=== PATIENT | male | born 1945 | race Caucasian/White ===

== ENCOUNTER → 2021-08-05 | Outpatient (CLI) | payer MEDICARE ==
--- NOTE | 2021-08-05 20:29 | CT ---
EXAMINATION TYPE: CT abdomen pelvis w con DATE OF EXAM: 08/05/2021 COMPARISON: None. HISTORY: Hx embolism/thrombus iliac groin area. CT DLP: 1015.20 mGycm, Automated Exposure Control for Dose Reduction was Utilized. CONTRAST: CT scan of the abdomen and pelvis is performed with oral and with IV Contrast, patient injected with 100 mL of Isovue 300. FINDINGS: LUNG BASES: No significant abnormality is appreciated. LIVER/GB: No significant abnormality is appreciated. PANCREAS: No significant abnormality is seen. SPLEEN: Small splenule inferior splenic hilum on image 58. ADRENALS: No significant abnormality is seen. KIDNEYS: Symmetric corticomedullary uptake and excretion without hydronephrosis seen bilaterally.. Th ere are simple appearing 2.5 cm thin-walled cyst in the right kidney upper midpole level axial image 32 series 6. BOWEL: Normal-appearing appendix from base of cecum. Oral contrast reaches level of the terminal ileu m. No suspicious small or large bowel dilatation. Diverticula scattered throughout the colon with pro minent diverticulosis in the sigmoid colon. There is moderate wall thickening and mild prominence of the adjacent vasa recta. Cannot entirely exclude noncomplicated mild acute diverticulitis. Correlate clinically. Slightly redundant sigmoid colon is present. PROSTATE/SEMINAL VESICLES: Mildly enlarged prostate consistent with BPH. LYMPH NODES: No greater than 1cm abdominal or pelvic lymph nodes are appreciated. OSSEOUS STRUCTURES: Moderate to severe anterior disc space narrowing with endplate sclerosis and spur ring anterior L1-L2 level. OTHER: Small fat-containing left inguinal hernia. Moderate calcified plaque of the abdominal aorta ex tends into branch vessels. 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 Patent iliac arterial vessels without significant stenosis extending into femoral vessels. IMPRESSION: 1. Patent arterial vessels without significant stenosis. Exam was not protocoled or tailored to asses s the venous structures in the abdomen and pelvis. 2. Scattered colonic diverticula including Prominent sigmoid colonic diverticulosis, cannot exclude m ild uncomplicated diverticulitis in the appropriate clinical setting. Correlate clinically.
== END | disposition home or self-care (01) ==
LOC: RADCTMAIN 14:40
PROVIDERS: ATTEND Internal Medicine Hematology & Oncology
DX: K57.30 Diverticulosis of large intestine without perforation or abscess without bleeding (principal)
CPT/HCPCS: 82565; 84520; 74177; 36415; Q9967

== ENCOUNTER 2022-12-21 06:12 | Inpatient (IN) | payer MEDICARE ==
[2022-12-21 06:17] VITALS: TEMP 97.8
[2022-12-21] MEDS ORDERED: NITROGLYCERIN SL TABS 0.4 MG TAB SUBLINGUAL STA (06:28)
--- NOTE | 2022-12-21 06:33 | ED ---
General Adult HPI <Braden Reyes - Last Filed: 12/21/22 07:38> - General Source: patient, RN notes reviewed, old records reviewed Mode of arrival: wheelchair Limitations: no limitations <Daryl Salgado - Last Filed: 12/22/22 09:45> - General Chief complaint: Chest Pain Stated complaint: Chest Pain Time Seen by Provider: 12/21/22 06:21 - History of Present Illness Initial comments: Patient is a 77-year-old male who presents emergency Department complaining of chest pain. Patient states he does have a history of previously unprovoked blood clots in his left upper extremity and left lower extremity. No longer on blood thinners. Patient also has a history of hypertension. Describes the pain as a pressure sensation with some radiation up towards his neck bilaterally. States it started suddenly when he awoke at 4 AM. Has been relatively constant since and decided to come to the emergency department for further evaluation. Denies any history of cardiac disease. Does have a history of hypertension. Denies any diaphoresis, nausea, vomiting. Denies any abdominal pain or shortness of breath. Did feel little bit lightheaded earlier when he initially awoke. Denies any weakness or numbness. He took 6 baby aspirin at home prior to arrival. Presents for further evaluation at this time. Does not follow up with a hedis abstractor. (Daryl Salgado) - Related Data Home Medications Medication Instructions Recorded Confirmed Atorvastatin [Lipitor] 10 mg PO HS 12/21/22 12/21/22 Losartan Potassium 100 mg PO HS 12/21/22 12/21/22 Multivitamins, Thera [Multivitamin 1 tab PO DAILY 12/21/22 12/21/22 (formulary)] Allergies Allergy/AdvReac Type Severity Reaction Status Date / Time No Known Allergies Allergy Verified 12/21/22 07:22 Review of Systems ROS Other: All systems not noted in ROS Statement are negative. <Braden Reyes - Last Filed: 12/21/22 07:38> ROS Other: All systems not noted in ROS Statement are negative. <Daryl Salgado - Last Filed: 12/22/22 09:45> ROS Statement: Those systems with pertinent positive or pertinent negative responses have been documented in the HPI. Review of Systems: CONST: Denies fever EYES: Denies blurry vision ENT: Denies nasal congestion C/V: Endorses chest pain RESP: Denies shortness of breath GI: Denies abdominal pain : Denies dysuria SKIN: Denies rash. MSK: Denies joint pain. NEURO: Denies headache (Daryl Salgado) Past Medical History Past Medical History: Hypertension, Prostate Disorder History of Any Multi-Drug Resistant Organisms: None Reported Past Surgical History: Breast Surgery, Hernia Repair Additional Past Surgical History / Comment(s): CYST REMOVED FROM LT BREAST- BENIGN. COLONOSCOPY. CATARACT REMOVED LT EYE Past Anesthesia/Blood Transfusion Reactions: No Reported Reaction Past Psychological History: No Psychological Hx Reported Smoking Status: Never smoker Past Alcohol Use History: Occasional Past Drug Use History: None Reported <Daryl Salgado - Last Filed: 12/22/22 09:45> General Exam Limitations: no limitations <Daryl Salgado - Last Filed: 12/22/22 09:45> - General Exam Comments Initial Comments: General: Appears in no acute distress. HEAD: Normal with no signs of head trauma. EYES: PERRLA, EOMI, conjunctiva normal, no discharge. ENT: Hearing grossly intact, normal oropharynx. RESPIRATORY: Clear breath sounds bilaterally. No wheezes, rales, or rhonchi. C/V: Regular rate and rhythm. S1 and S2 auscultated, no edema, peripheral pulses 2+ and intact throughout ABD: Abd is soft, nontender, nondistended EXT: Normal range of motion, no obvious deformity SKIN: No rashes or lesions observed on exposed skin. NEURO: Alert and oriented 4. No focal deficits. (Daryl Salgado) Course Vital Signs 12/21/22 12/21/22 06:14 07:18 Temperature 97.8 F Pulse Rate 58 L 60 Respiratory 16 18 Rate Blood Pressure 189/94 148/90 O2 Sat by Pulse 99 96 Oximetry Medical Decision Making - Lab Data Result diagrams: 12/21/22 06:31 12/21/22 06:31 <Braden Reyes - Last Filed: 12/21/22 07:38> - Lab Data Result diagrams: 12/21/22 12:00 12/21/22 12:00 - EKG Data -: EKG Interpreted by Me <Daryl Salgado - Last Filed: 12/22/22 09:45> - Medical Decision Making Patient care sign out to me by previous shift physician, Dr. Salgado and. Briefly, patient is 77-year-old male presents to the emergency department for symptoms concerning of acute coronary syndrome. Describes the pain as tightness across his chest and into his right shoulder. No associated diaphoresis or nausea. Patient has no history of cardiac disease. His history of hypercholesterolemia and hypertension. Patient denies radiation to his back. Evaluated at bedside at 7:10 AM. He is well-appearing. Physical examination is otherwise benign. EKG was reviewed showing obvious depressions in lateral precordial leads, high lateral leads. Repeat EKG was performed with dynamic changes. Clinical presentation concerning with acute coronary syndrome. Code STEMI was activated. Patient started on heparin. Patient had episode of V. fib arrest that lasted for several seconds. He was defibrillated with return of sinus rhythm and return of spontaneous circulation. Discussed that was discussed with hedis abstractor. Dr. Melendez requested that patie nt be brought to the laboratory chief immediately. Diagnosis/symptom? @ -STEMI Acute, or Chronic, or Acute on Chronic? @ -Acute Uncomplicated (without systemic symptoms) or Complicated (systemic symptoms)? @ -Complicated by episode of V. fib Critical care time 33 minutes (Braden Reyes) Was pt. sent in by a medical professional or institution (, PA, AUXILIARY POWERPLANT OPERATOR, urgent care, hospital, or care home...) When possible be specific @ -No Did you speak to anyone other than the patient for history (EMS, parent, family, police, friend...)? What history was obtained from this source @ -No Did you review nursing and triage notes (agree or disagree)? Why? @ -I reviewed and agree with nursing and triage notes Were old charts reviewed (outside hosp., previous admission, EMS record, old EKG, old radiological studies, urgent care reports/EKG's, care home records)? Report findings @ -No old charts were reviewed Differential Diagnosis (chest pain, altered mental status, abdominal pain women, abdominal pain men, vaginal bleeding, weakness, fever, dyspnea, syncope, headache, dizziness, GI bleed, back pain, seizure, CVA, palpatations, mental health, musculoskeletal)? @ -Differential Chest Pain: Stable Angina, Unstable Angina, STEMI, NSTEMI Aortic Dissection, Pneumothorax, Musculoskeletal, Esophageal Spasm GERD, Cholecystitis, Pancreatitis, Zoster, this is not meant to be an all-inclusive list. EKG interpreted by me (3pts min.). @ -As above X-rays interpreted by me (1pt min.). @ -Pending CT interpreted by me (1pt min.). @ -None done U/S interpreted by me (1pt. min.). @ -None done What testing was considered but not performed or refused? (CT, X-rays, U/S, labs)? Why? @ -None What meds were considered but not given or refused? Why? @ -None Did you discuss the management of the patient with other professionals (professionals i.e. , PA, AUXILIARY POWERPLANT OPERATOR, lab, RT, psych nurse, hospital social worker, fire fighter airport, teacher, president and chief executive officer, case filler)? Give summary @ -No Was smoking cessation discussed for >3mins.? @ -No Was critical care preformed (if so, how long)? @ -No Were there social determinants of health that impacted care today? How? (Homelessness, low income, unemployed, alcoholism, drug addiction, transportation, low edu. Level, literacy, decrease access to med. care, fci, rehab)? @ -No Was there de-escalation of care discussed even if they declined (Discuss DNR or withdrawal of care, Hospice)? DNR status @ -No What co-morbidities impacted this encounter? (DM, HTN, Smoking, COPD, CAD, Cancer, CVA, ARF, Chemo, Hep., AIDS, mental health diagnosis, sleep apnea, morbid obesity)? @ -Hypertension Was patient admitted / discharged? Hospital course, mention meds given and route, prescriptions, significant lab abnormalities, going to OR and other pertinent info. @ -Based on the patient's presentation and physical exam, presents with chest pressure sensation. Somewhat typical chest pain. Concern for acute cardiopulmonary process. We will obtain cardiac workup. He already took 6 baby aspirin at home. He will be administered nitroglycerin tablets at this time. He was in agreement this plan. Vital signs are remarkable for mild hypertension. He'll be connected to continuous cardiac monitoring. EKG shows nonspecific ST segment and T-wave changes with no prior EKG for comparison, with minimal elevation in III that is isolated. Plan to repeat EKG. Remainder the patient's workup is still pending at this time. Patient will be signed out to Dr. Reyes who is assuming care of the patient. (Daryl Salgado) - Lab Data Lab Results 12/21/22 12/21/22 12/21/22 Range/Units 06:31 06:31 06:31 WBC 8.5 (3.8-10.6) k/uL RBC 4.80 (4.30-5.90) m/uL Hgb 14.0 (13.0-17.5) gm/dL Hct 42.1 (39.0-53.0) % MCV 87.5 (80.0-100.0) fL MCH 29.2 (25.0-35.0) pg MCHC 33.4 (31.0-37.0) g/dL RDW 14.6 (11.5-15.5) % Plt Count 182 (150-450) k/uL MPV 8.3 Neutrophils % 64 % Lymphocytes % 25 % Monocytes % 6 % Eosinophils % 4 % Basophils % 0 % Neutrophils # 5.4 (1.3-7.7) k/uL Lymphocytes # 2.2 (1.0-4.8) k/uL Monocytes # 0.5 (0-1.0) k/uL Eosinophils # 0.3 (0-0.7) k/uL Basophils # 0.0 (0-0.2) k/uL PT 10.3 (9.0-12.0) sec INR 1.0 (<1.2) APTT 22.0 (22.0-30.0) sec D-Dimer 0.57 (<0.60) mg/L FEU Sodium 140 (137-145) mmol/L Potassium 4.0 (3.5-5.1) mmol/L Chloride 107 (98-107) mmol/L Carbon Dioxide 25 (22-30) mmol/L Anion Gap 8 mmol/L BUN 16 (9-20) mg/dL Creatinine 0.86 (0.66-1.25) mg/dL Est GFR (CKD-EPI)AfAm >90 (>60 ml/min/1.73 sqM) Est GFR (CKD-EPI)NonAf 84 (>60 ml/min/1.73 sqM) Glucose 115 H (74-99) mg/dL Calcium 9.2 (8.4-10.2) mg/dL Magnesium 2.0 (1.6-2.3) mg/dL Total Bilirubin 0.6 (0.2-1.3) mg/dL AST 31 (17-59) U/L ALT 22 (4-49) U/L Alkaline Phosphatase 74 (38-126) U/L Troponin I (0.000-0.034) ng/mL Total Protein 7.1 (6.3-8.2) g/dL Albumin 3.9 (3.5-5.0) g/dL 12/21/22 Range/Units 06:31 WBC (3.8-10.6) k/uL RBC (4.30-5.90) m/uL Hgb (13.0-17.5) gm/dL Hct (39.0-53.0) % MCV (80.0-100.0) fL MCH (25.0-35.0) pg MCHC (31.0-37.0) g/dL RDW (11.5-15.5) % Plt Count (150-450) k/uL MPV Neutrophils % % Lymphocytes % % Monocytes % % Eosinophils % % Basophils % % Neutrophils # (1.3-7.7) k/uL Lymphocytes # (1.0-4.8) k/uL Monocytes # (0-1.0) k/uL Eosinophils # (0-0.7) k/uL Basophils # (0-0.2) k/uL PT (9.0-12.0) sec INR (<1.2) APTT (22.0-30.0) sec D-Dimer (<0.60) mg/L FEU Sodium (137-145) mmol/L Potassium (3.5-5.1) mmol/L Chloride (98-107) mmol/L Carbon Dioxide (22-30) mmol/L Anion Gap mmol/L BUN (9-20) mg/dL Creatinine (0.66-1.25) mg/dL Est GFR (CKD-EPI)AfAm (>60 ml/min/1.73 sqM) Est GFR (CKD-EPI)NonAf (>60 ml/min/1.73 sqM) Glucose (74-99) mg/dL Calcium (8.4-10.2) mg/dL Magnesium (1.6-2.3) mg/dL Total Bilirubin (0.2-1.3) mg/dL AST (17-59) U/L ALT (4-49) U/L Alkaline Phosphatase (38-126) U/L Troponin I 0.037 H* (0.000-0.034) ng/mL Total Protein (6.3-8.2) g/dL Albumin (3.5-5.0) g/dL - EKG Data EKG Comments: 12-lead Electrocardiogram Interpretation Note EKG was reviewed and interpreted by myself. 12-lead ECG performed at 0625 is interpreted by me as revealing sinus bradycardia at a rate of 53 beats per iban te. [place] is normal.. VA interval is 143 ms, QRS durations 106 ms, QTc is 414 ms.. There are nonspecific ST and T-wave changes present with possible isolated minimal elevation in III and nonspecific ST depressions. R wave progression across the precordium was satisfactory. No prior EKG for comparison.. (Daryl Salgado) Disposition Decision Time: 07:40 <Braden Reyes - Last Filed: 12/21/22 07:38> <Daryl Salgado - Last Filed: 12/22/22 09:45> Clinical Impression: STEMI (ST elevation myocardial infarction) Disposition: ADMITTED IP TO THIS HOSP
[2022-12-21 06:38] LABS: Basophils % (A) 0 %; Eosinophils # (A) 0.3 k/uL (0-0.7); Eosinophils % (A) 4 %; HCT 42.1 % (39.0-53.0); Lymphocytes # (A) 2.2 k/uL (1.0-4.8); Lymphocytes % (A) 25 %; MCH 29.2 pg (25.0-35.0); MCHC 33.4 g/dL (31.0-37.0); MCV 87.5 fL (80.0-100.0); Mean Platelet Volume 8.3; Monocytes # (A) 0.5 k/uL (0-1.0); Monocytes % (A) 6 %; Neutrophils # (A) 5.4 k/uL (1.3-7.7); Neutrophils % (A) 64 %; Platelet Count 182 k/uL (150-450); RDW 14.6 % (11.5-15.5); WBC 8.5 k/uL (3.8-10.6)
[2022-12-21 06:51] LABS: AST 31 U/L (17-59); African American GFR (CKD) >90 (>60 ml/min/1.73 sqM); Albumin 3.9 g/dL (3.5-5.0); Blood Urea Nitrogen 16 mg/dL (9-20); Carbon Dioxide 25 mmol/L (22-30); Chloride 107 mmol/L (98-107); Glucose 115 mg/dL (74-99); Non-African American GFR(CKD) 84 (>60 ml/min/1.73 sqM); Total Bilirubin 0.6 mg/dL (0.2-1.3); Total Protein 7.1 g/dL (6.3-8.2)
[2022-12-21 06:52] LABS: Prothrombin Time 10.3 sec (9.0-12.0)
[2022-12-21 07:00] LABS: ALT 22 U/L (4-49); Alkaline Phosphatase 74 U/L (38-126); Anion Gap 8 mmol/L; Calcium 9.2 mg/dL (8.4-10.2); Sodium 140 mmol/L (137-145)
--- NOTE | 2022-12-21 07:15 | XR ---
EXAMINATION TYPE: XR chest 2V DATE OF EXAM: 12/21/2022 6:52 AM COMPARISON: None TECHNIQUE: XR chest 2V Frontal and lateral views of the chest. CLINICAL INDICATION:Male, 77 years old with history of Chest Pain; FINDINGS: Lungs/Pleura: There is no evidence of pleural effusion, focal consolidation, or pneumothorax. Pulmonary vascularity: Unremarkable. Heart/mediastinum: Cardiomediastinal silhouette is unremarkable. Musculoskeletal: No acute osseous pathology. IMPRESSION: No acute cardiopulmonary disease/process.
[2022-12-21] MEDS ORDERED: HEPARIN SODIUM 1,000 UN/ML (10ML VL) IV ONE (07:20)
[2022-12-21] MEDS ORDERED: HEPARIN SODIUM 1,000 UN/ML (10ML VL) IV PRN (07:20)
[2022-12-21] MEDS ORDERED: MAGNESIUM SULFATE SYG 4.06 MEQ/ML SYRINGE ONE (07:21)
[2022-12-21] MEDS ORDERED: SODIUM BICARB 8.4% 50 ML SYR (1 MEQ/ML) ONE (07:21)
[2022-12-21] MEDS ORDERED: EPINEPHrine 10 ML SYRINGE (0.1 MG/ML) ONE (07:21)
[2022-12-21] MEDS ORDERED: CALCIUM CHLORIDE 100 MG/ML 10 ML SYRINGE ONE (07:21)
[2022-12-21] MEDS ORDERED: LIDOCAINE 2% SYG (PF) 100 MG/5 ML ONE (07:21)
[2022-12-21] MEDS ORDERED: LIDOCAINE-D5W PMX 2G/250ML 8 MG/ML IV ONE (07:21)
[2022-12-21] MEDS ORDERED: NALOXONE 0.4 MG/ML 1 ML VIAL IV PRN (07:24)
[2022-12-21] MEDS ORDERED: HEPARIN SOD,PORK IN 0.45% NACL 25,000 UNIT in 0.45% NACL 1 250ML.BAG IV SCH (07:30)
[2022-12-21] MEDS ORDERED: ONDANSETRON 4 MG/2 ML VIAL IVP STA (07:30)
[2022-12-21] MEDS ORDERED: SODIUM CHLORIDE 0.9% 1,000 ML IV ONE ×2 (07:39→10:22)
[2022-12-21] MEDS ORDERED: LIDOCAINE 1% INJ 10MG/ML (30 ML VIAL-PF) SQ ONE ×2 (07:41→07:44)
[2022-12-21] MEDS ORDERED: METOPROLOL TARTRATE 5 MG/5 ML VIAL IVP ONE (07:43)
[2022-12-21] MEDS: MIDAZOLAM 2 MG/2 ML VIAL IVP ONE ×3 (07:45→10:17)
[2022-12-21] MEDS ORDERED: SODIUM CHLORIDE 0.9% 500 ML 500 ML IV ONE (07:45)
[2022-12-21] MEDS ORDERED: TICAGRELOR 90 MG TAB PO ONE (07:53)
[2022-12-21] MEDS ORDERED: DEXTROSE 5% IN WATER 100 ML with AMIODARONE 150 MG IV ONE ×2 (07:55→08:15)
[2022-12-21] MEDS ORDERED: NOREPINEPHRINE 4 MG in SODIUM CHLORIDE 0.9% 250 ML IV ONE (07:58)
[2022-12-21] MEDS ORDERED: LIDOCAINE 2% SYG (PF) 100 MG/5 ML MISCELLANE ONE ×2 (08:07→08:16)
[2022-12-21] MEDS ORDERED: IOPAMIDOL-370 100ML BTL INJ ONE ×2 (08:24→10:14)
[2022-12-21] MEDS ORDERED: DEXTROSE 5% IN WATER 250 ML with AMIODARONE 300 MG IV ONE (08:30)
[2022-12-21] MEDS ORDERED: ATROPINE SULFATE 0.1 MG/ML 10ML SYRINGE IV ONE (08:30)
[2022-12-21] MEDS ORDERED: EPINEPHrine 10 ML SYRINGE (0.1 MG/ML) MISCELLANE ONE (08:45)
[2022-12-21 08:46] VITALS: BP 148/90
[2022-12-21] MEDS ORDERED: AMIODARONE 360 MG in DEXTROSE 5% IN WATER 200 ML IV ONE ×2 (09:00)
[2022-12-21] MEDS ORDERED: IOPAMIDOL-300 100ML BTL INJ ONE (09:34)
[2022-12-21] MEDS ORDERED: TIROFIBAN 12.5MG-250ML NS 250 ML IV ONE ×2 (09:55)
[2022-12-21] MEDS: fentaNYL (PF) 50 MCG/1 ML VIAL IVP ONE ×2 (10:04→10:21)
[2022-12-21] MEDS ORDERED: NITROGLYCERIN SL TABS 0.4 MG TAB SUBLINGUAL PRN (10:25)
[2022-12-21] MEDS ORDERED: RX INFO: IV CONTRAST WAS GIVEN 1 EACH MISC MISCELLANE PRN (10:25)
[2022-12-21] MEDS ORDERED: MAG HYDROX/AL HYDROX/SIMETH 30 ML CUP PO PRN (10:25)
[2022-12-21] MEDS ORDERED: ZOLPIDEM 5 MG TAB PO PRN (10:25)
[2022-12-21] MEDS ORDERED: ATROPINE SULFATE 0.1 MG/ML 10ML SYRINGE IV PRN (10:25)
[2022-12-21] MEDS ORDERED: SODIUM CHLORIDE 0.9% 1,000 ML in EMPTY BAG 1 BAG IV SCH (10:30)
--- NOTE | 2022-12-21 10:35 | CONS ---
CONSULTATION HISTORY OF PRESENT ILLNESS: Mikie is a 77-year-old gentleman with history of hypertension and dyslipidemia who presented to [facility] around 6:30 this morning complaining of chest pain. He describes it as a pressure-like sensation in the precordial area that radiated to the neck bilaterally, did woke him up from sleep around 4 o'clock this morning. There is an EKG done at 6:40 a.m. that showed T-wave inversions with ST- segment depression in lead I, aVL with a subtle ST elevation in leads III and aVF. There was also ST-segment depression in leads V2 all the way to V6. I received a page from the emergency room around 7:16 this morning. The patient has STEMI and he was going to activate the lab. The ER physician felt that the patient was having an acute WI. I advised him to activate the chemical laboratory chief and I met the patient in the chemical laboratory chief. His second EKG around 7:[address]-segment elevations in leads II, III, and aVF. As he was waiting to come to the chemical laboratory chief, he had an episode of VFib and had to be defibrillated, but when he arrived in the chemical laboratory chief, he was still having chest pressure, but was hemodynamically stable. I have made a diagnosis of acute inferior wall myocardial infarction and advised the patient to undergo emergent cardiac catheterization. PAST MEDICAL HISTORY: Significant for hypertension, dyslipidemia. MEDICATIONS: Include, 1. Losartan 100 mg daily. 2. Lipitor 10 mg daily. 3. Multivitamins. ALLERGIES: There are no known drug allergies. FAMILY HISTORY: Negative for premature coronary artery disease. SOCIAL HISTORY: Negative for current smoking, EtOH, or drug abuse. REVIEW OF SYSTEMS: 14 out of 14 review of systems has been performed. Pertinent are as documented. PHYSICAL EXAMINATION: GENERAL: The patient is comfortable at rest. Afebrile. Heart rate is 58 beats per minute. VITAL SIGNS: Blood pressure was 120/76, respiratory rate is 18. NECK: There is no jugular venous distention. CHEST: Reveals diminished air entry at the bases. I do not hear any crackles or rhonchi. HEART: Reveals first and second heart sounds. No gallop. No murmur. No rub. ABDOMEN: Soft, nontender. EXTREMITIES: Exam of extremities did not reveal any edema. LABORATORY DATA: Showed a hemoglobin of 14, platelet count is 182. Troponin is elevated at 0.03. Potassium is 4, creatinine 0.86. ASSESSMENT: Acute inferior wall myocardial infarction. PLAN: The patient will undergo emergent cardiac catheterization. NATANAELL / IJN: [id number] /
--- NOTE | 2022-12-21 10:38 | CC ---
CARDIAC CATHETERIZATION REPORT INDICATIONS: Acute inferior wall myocardial infarction. PROCEDURE NOTE: After obtaining informed consent, left heart catheterization and coronary angiogram were performed via the right femoral artery using standard Brian catheters. The patient tolerated the procedure well. He had an episode of VFib during the procedure that we had to shock and resuscitate. FINDINGS: HEMODYNAMICS: 1. Central aortic pressure is 110/70 mm. 2. Left ventriculogram: Left ventriculogram is not performed. ANGIOGRAPHIC DATA: 1. Right coronary artery: Right coronary artery is totally occluded in its proximal portion. 2. Left main coronary artery appears calcified. There is a distal 10% to 20% left main disease. 3. LAD appears calcified with atherosclerotic plaque in the proximal portion without any focal stenotic lesions. 4. Circumflex coronary artery seems to be a nondominant vessel that shows 50% stenosis proximally. CONCLUSIONS: Acutely occluded right coronary artery. PLAN: The patient will undergo emergent angioplasty of the same. MMODL / IJN: [id number] /
--- NOTE | 2022-12-21 10:38 | P.CARDCATH ---
Date of Procedure: 12/21/22 Description of Procedure: PERCUTANEOUS TRANSLUMINAL CORONARY ANGIOPLASTY CLINICAL INFORMATION: The patient is a 77-year-old male with no prior cardiac history who presented with chest discomfort and while in the emergency room had ST segment elevation inferiorly with ventricular fibrillation requiring car dioversion. He underwent cardiac catheterization by Dr. Melendez and was found to have a heavily calcified proximal RCA with total occlusion. . Recommendations were made regarding angioplasty and stenting. The procedure as well as the risks and the complications were discussed with the patient who was in full understanding and agreement. PROCEDURE: A 6 Bulgarian JR4 guiding catheter was introduced into the system. After cannulating the right coronary ostium, a 0.014 BMW was advanced across the lesion with the help of a Corsair catheter and positioned distally. Attempt to advance a 2.5 x 12 mm Treck balloon were unsuccessful. Patient was having recurrent ventricle fibrillation requiring cardioversion and because of the movement of the catheter and the poor backup, the guiding catheter was removed and a 0.075 AL guiding catheter was introduced. A 0.014 BMW J-wire was reintroduced with the help of a microcatheter, positioned distally. Subsequently a 1.0 x 8 mm Sapphire balloon was advanced, multiple inflations were done, attempt to advance the 2.5 balloon were unsuccessful. A guideliner was advanced and a 1.0 x 15 mm Sapphire balloon was advanced and multiple inflation at 10 luis carlos were done subsequently a 2.0 x 8 mm, 2.5 x 12 mm Treck were advanced sequentially and multiple inflations at 10 luis carlos were done. Following that is 3.0 x 12 mm NC Treck was advanced and inflation at 10 luis carlos were done, after removing the balloon 3.25 x 15 mm Xience miriam point stent deployed at 16 luis carlos, after removing the balloon 3.75 x 12 mm Treck balloon was advanced and inflations at 10 luis carlos was done. Subsequently a 4.0X8 mm Xience miriam point was deployed proximal to the first one at 16 luis carlos. After removing the balloon a Hupu intravascular ultrasound catheter was introduced and images were obta ined subsequently a 4.5 x 12 mm NC Treck balloon was advanced and inflation and stent at 12 luis carlos. After the last inflation the wire was removed and images were obtained and revealed stable successful stenting. Of note that the attempt to advance an export catheter distally were unsuccessful because of haziness prior to the bifurcation. During the procedure the patient was hemodynamically unstable requiring mechanical ventilation and was started on norepinephrine, continued on amiodarone. After the last inflation, after appropriate wait, the balloon and the guidewire were withdrawn back into the guiding catheter. Images were obtained and repeated. Those images reveal stable successful stenting. At that point, the guiding catheter, the balloon, and guidewire were removed. The sheath was removed. Hemostasis was obtained with deployment of an Angio-Seal. There were no immediate complications. The patient was returned to the room in stable condition. Of note, the patient received 9000 units of heparin as well as Brilinta. His ACT was followed. There was no immediate complications. He was started on Aggrastat. He was hemodynamically more stable with no further episodes of ventricular fibrillation and back in sinus mechanism. RESULTS: Successful stenting of the proximal RCA with reduction of stenosis from 100% to less than 5 % with intravascular ultrasound. Patient had evidence of cardiogenic shock RECOMMENDATIONS: The patient will continue on aspirin and Brilinta for 12 months in addition to aggressive coronary risk modification. He will be continued on amiodarone until the morning in addition to ventilation support and if stable attempt to wean and extubate tomorrow. The findings and recommendations were discussed with the family, they are in full understanding and agreement. Prognosis remains guarded Duration of sedation: 143 minutes
[2022-12-21] MEDS ORDERED: CISATRACURIUM 2 MG/ML 5 ML VIAL IV ONE ×2 (10:43→11:45)
[2022-12-21 11:02] LABS: Glucose,Whole Blood 283 mg/dL (70-110)
[2022-12-21 11:09] LABS: ABG Base Excess -5.9 mmol/L; ABG HCO3 21 mmol/L (21-25); ABG Oxygen Saturation 98.7 % (94-97); ABG PCO2 45 mmHg (35-45); ABG PH 7.28 (7.35-7.45); ABG PO2 184 mmHg (83-108); ABG TCO2 22 mmol/L (19-24); Allen Test Performed? Yes
[2022-12-21] MEDS ORDERED: NOREPINEPHRINE 8 MG in SODIUM CHLORIDE 0.9% 250 ML IV SCH (11:15)
[2022-12-21 11:20] LABS: Mean Platelet Volume 8.4; Platelet Count 229 k/uL (150-450)
[2022-12-21] MEDS ORDERED: LIDOCAINE 2% SYG (PF) 100 MG/5 ML IV ONE (11:26)
[2022-12-21 11:27] LABS: Glucose,Whole Blood 279 mg/dL (70-110)
[2022-12-21] MEDS ORDERED: LIDOCAINE-D5W PMX 2G/250ML 2,000 MG in DEXTROSE/WATER 1 250ML.BAG IV SCH (11:30)
[2022-12-21] MEDS ORDERED: EPINEPHrine 4 MG in DEXTROSE 5% IN WATER 250 ML IV SCH ×2 (11:45)
[2022-12-21] MEDS ORDERED: ARTIFICIAL TEARS OINTMENT 3.5 GM TUBE BOTH EYES SCH (12:00)
[2022-12-21 12:06] LABS: Basophils % (A) 0 %; Eosinophils # (A) 0.1 k/uL (0-0.7); Eosinophils % (A) 0 %; HCT 36.2 % (39.0-53.0); HGB 11.9 gm/dL (13.0-17.5); Lymphocytes # (A) 2.2 k/uL (1.0-4.8); Lymphocytes % (A) 10 %; MCH 29.1 pg (25.0-35.0); MCHC 32.8 g/dL (31.0-37.0); MCV 88.6 fL (80.0-100.0); Mean Platelet Volume 8.7; Monocytes # (A) 1.2 k/uL (0-1.0); Monocytes % (A) 5 %; Neutrophils # (A) 18.3 k/uL (1.3-7.7); Neutrophils % (A) 83 %; Platelet Count 240 k/uL (150-450); RBC 4.09 m/uL (4.30-5.90); RDW 14.8 % (11.5-15.5)
[2022-12-21] MEDS ORDERED: fentaNYL (PF) 50 MCG/ML 2 ML AMP IVP ONE (12:06)
--- NOTE | 2022-12-21 12:06 | XR ---
EXAMINATION TYPE: XR chest 1V portable DATE OF EXAM: 12/21/2022 11:40 AM COMPARISON: Chest radiographs from 12/21/2022 TECHNIQUE: XR chest 1V portable Frontal view of the chest. CLINICAL INDICATION:Male, 77 years old with history of intubated and central line placement; FINDINGS: Lungs/Pleura: There is no evidence of pleural effusion, focal consolidation, or pneumothorax. Pulmonary vascularity: Unremarkable. Heart/mediastinum: Cardiomediastinal silhouette is unremarkable. Musculoskeletal: No acute osseous pathology. Other findings: None Lines/Tubes: Endotracheal tube with distal tip 6.0 cm above the nahed. Nasogastric tube with its distal tip and side-port projecting under the diaphragm. Right central venous catheter with distal tip at the cavoatrial junction. No pneumothorax. IMPRESSION: Support line and tubes in satisfactory position.
[2022-12-21 12:08] LABS: ABG Base Excess -0.7 mmol/L; ABG HCO3 25 mmol/L (21-25); ABG PCO2 47 mmHg (35-45); ABG PH 7.34 (7.35-7.45); ABG PO2 223 mmHg (83-108); ABG TCO2 27 mmol/L (19-24); Allen Test Performed? Yes
[2022-12-21 12:13] VITALS: BMI 28.0
[2022-12-21 12:14] LABS: Partial Thromboplastin Time 68.3 sec (22.0-30.0); Prothrombin Time 10.9 sec (9.0-12.0)
[2022-12-21] MEDS ORDERED: CISATRACURIUM 200 MG in SODIUM CHLORIDE 0.9% 180 ML IV SCH (12:15)
[2022-12-21] MEDS ORDERED: fentaNYL (PF). 1,000 MCG in SODIUM CHLORIDE 0.9% 80 ML IV SCH (12:15)
[2022-12-21] MEDS ORDERED: MIDAZOLAM HCL 50 MG in SODIUM CHLORIDE 0.9% 40 ML IV SCH (12:15)
[2022-12-21 12:22] LABS: ALT 34 U/L (4-49); AST 86 U/L (17-59); African American GFR (CKD) >90 (>60 ml/min/1.73 sqM); Alkaline Phosphatase 81 U/L (38-126); Anion Gap 8 mmol/L; Blood Urea Nitrogen 15 mg/dL (9-20); Calcium 9.2 mg/dL (8.4-10.2); Carbon Dioxide 24 mmol/L (22-30); Chloride 105 mmol/L (98-107); Glucose 268 mg/dL (74-99); Non-African American GFR(CKD) 83 (>60 ml/min/1.73 sqM); Phosphorus 2.8 mg/dL (2.5-4.5); Sodium 137 mmol/L (137-145); Total Bilirubin 0.6 mg/dL (0.2-1.3); Total Protein 5.8 g/dL (6.3-8.2)
[2022-12-21] MEDS ORDERED: DEXTROSE 5% IN WATER 1,000 ML with SODIUM BICARB (1 MEQ/ML) 150 ML IV SCH (12:30)
[2022-12-21 12:31] LABS: Ionized Calcium 5.6 mg/dL (4.5-5.3)
[2022-12-21] MEDS ORDERED: PROCAINAMIDE IV ONE (12:33)
[2022-12-21] MEDS ORDERED: SODIUM CHLORIDE 0.9% IV ONE (12:33)
[2022-12-21 12:42] LABS: Magnesium 8.3 mg/dL (1.6-2.3)
[2022-12-21] MEDS ORDERED: PROCAINAMIDE 1,000 MG in DEXTROSE 5% IN WATER 250 ML IV SCH ×2 (12:45)
--- NOTE | 2022-12-21 13:07 | P.EN ---
CODE BLUE Indication: V fib Arrived on Scene to find: CPR in progress Initial Rhythm: V fib on the monitor Code Course: Patient had a prolonged code course that started in the ER and continued in the clinical laboratory scientist where he had 2 stents to the RCA and required multiple defibs in the clinical laboratory scientist. On arrival to the ICU he continued to have frequent V f ib requiring multiple Defib. Code herbie was called overhead at that point. He had a prolonged code course with multiple providers at bedside, including Dr. Godfrey, Dr. Lake, Dr. Zuluaga, and Dr. Merritt. Please see CODE Sheets for details of code course. Patient had received amnio bolus X 2, Mag 5 grams, and was on a levophed gtt, aggrastat gtt, and Propofol During the code Lidocaine was given IVP and gtt was started.He was transitioned off norepi and to epi gtt He was given calcium chloride X 2, Bicarb X 2, mag sultfate an additional 5 grams. His central line was pulled out 2 CM He was started on a fentanyl gtt Patient's family elected to stop resuscitative measure and he passed with a bedside at 1245. Assessment: V fib, STEMI, Ischemic cardiomyopathy Notified: Dr. Leiva A Total of 126 minutes of critical care time was spent on the complex care of this patient. This dictation was prepared using [employer] voice recognition software. Though every attempt is made to correct errors during dictation some may still exist.
--- NOTE | 2022-12-21 13:38 | P.CNPUL ---
History of Present Illness Consult date: 12/21/22 Requesting physician: Kristofer Merritt Reason for consult: other (Acute hypoxic respiratory failure and cardiac arrest) Chief complaint: Chest pain History of present illness: This is a 77-year-old white male, presented to the ER with acute chest pain. 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 History of hypertension, presented to the ER with pressure sensation and some radiation of chest pain to the neck area bilaterally. Apparently this awaken the patient at 4 AM this morning. Patient took 4 baby aspirins at home right her to arrival. EKG in the ER showed ST segment elevation inferiorly and the patient developed ventricular fibrillation requiring cardioversion. Underwent immediate cardiac catheterization by Dr. Tamez, and he was found to have heavily calcified proximal RCA with total occlusion. Hence the patient is advised to have angioplasty and stenting. Dr. Merritt perform successful stenting of the proximal RCA and reduction of stenosis from 100% to less than 5% with intravascular ultrasound. Apparently while in the rn labor delivery, patient had multiple episodes of ventricular arrhythmia in the form of ventricular fibrillation and tachycardia, he required over 10 defibrillations while in the rn labor delivery. Then the patient was transferred to the ICU, and I was asked to see him on consultation. Patient was intubated and mechanically ventilated. He was on assist control rate of 2012 volume 4 5000% FiO2 and PEEP of 5. Patient was also on norepinephrine at 0.0 and 1 chronic nuclear per minute amiodarone at 1 mg/m and he was on Aggrastat, and propofol at 30 mcg/kg/m. Considering the patient was unstable, and requiring pressors, I went ahead and placed a right subclavian central line, and a right brachial arterial line. Shortly after, patient developed ventricular fibrillation again, we defibrillated the patient again.. Apparently patient stabilized for a short period of time, then he went on to develop recurrent episodes of ventricular fibrillation and requiring shocking. Cardiology reevaluated the patient, and later on family decided to go with comfort care measures and not to perform any further CPR or defibrillation. Labs in the meantime were reviewed the status 22 hemoglobin 11.9 his PTT was 68 ABG post line placement showed a pO2 of 223 pCO2 47 pH of 7.34, troponin 0.037 Review of Systems ROS unobtainable: due to endotracheal tube Past Medical History Past Medical History: Hypertension, Prostate Disorder History of Any Multi-Drug Resistant Organisms: None Reported Past Surgical History: Breast Surgery, Hernia Repair Additional Past Surgical History / Comment(s): CYST REMOVED FROM LT BREAST-BENIGN. COLONOSCOPY. CATARACT REMOVED LT EYE Past Anesthesia/Blood Transfusion Reactions: No Reported Reaction Past Psychological History: No Psychological Hx Reported Smoking Status: Never smoker Past Alcohol Use History: Occasional Past Drug Use History: None Reported Medications and Allergies Home Medications Medication Instructions Recorded Confirmed Type Atorvastatin [Lipitor] 10 mg PO HS 12/21/22 12/21/22 History Losartan Potassium 100 mg PO HS 12/21/22 12/21/22 History Multivitamins, Thera [Multivitamin 1 tab PO DAILY 12/21/22 12/21/22 History (formulary)] Allergies Allergy/AdvReac Type Severity Reaction Status Date / Time No Known Allergies Allergy Verified 12/21/22 07:22 Physical Exam Vitals: Vital Signs Temp Pulse Resp BP Pulse Ox FiO2 12/21/22 08:52 100 12/21/22 08:51 100 12/21/22 07:18 60 18 148/90 96 12/21/22 06:14 97.8 F 58 L 16 189/94 99 Intake and Output 12/20/22 12/21/22 12/21/22 22:59 06:59 14:59 Intake Total 1636 Output Total 850 Balance 786 Intake: IV 1636 Output: Urine 850 Other: Weight 86.183 kg 86.183 kg Physical Exam: Revealed a 77-year-old white male intubated and mechanically ventilated Head: Atraumatic normocephalic endotracheal tube and orogastric tube are intact HEENT:[Neck is supple.] [No neck masses.] [No thyromegaly.] [No JVD.] Chest: [Minimal crackles at the bases no rhonchi and no wheezes Cardiac Exam: [Normal S1 and S2, no S3 gallop, no murmur.] Abdomen: [Soft, nontender, no megaly, no rebound, no guarding, normal bowel sounds.] Extremities: [No clubbing, no edema, no cyanosis.] Neurological Exam: Could not assess patient is on propofol, however he was noted to be restless and agitated in spite of propofol, patient was given 10 mg of Nimbex Psychiatric: Could not assess. Results - Laboratory Findings CBC and BMP: 12/21/22 12:00 12/21/22 12:00 ABG ABG pH 7.34 (7.35-7.45) L 12/21/22 12:06 ABG pCO2 47 mmHg (35-45) H 12/21/22 12:06 ABG pO2 223 mmHg (83-108) H 12/21/22 12:06 ABG O2 Saturation 99.0 % (94-97) H 12/21/22 12:06 PT/INR, D-dimer PT 10.9 sec (9.0-12.0) 12/21/22 12:00 INR 1.0 (<1.2) 12/21/22 12:00 D-Dimer 0.57 mg/L FEU (<0.60) 12/21/22 06:31 Abnormal lab findings: Abnormal Labs 12/21/22 12/21/22 12/21/22 06:31 06:31 11:00 WBC RBC Hgb Hct Neutrophils # Monocytes # APTT ABG pH ABG pCO2 ABG pO2 ABG Total CO2 ABG O2 Saturation Potassium Glucose 115 H POC Glucose (mg/dL) 283 H Plasma Lactic Acid Loy Ionized Calcium Hebert Magnesium AST Troponin I 0.037 H* Total Protein Albumin 12/21/22 12/21/22 12/21/22 11:07 11:10 11:26 WBC RBC Hgb Hct Neutrophils # Monocytes # APTT 86.4 H ABG pH 7.28 L ABG pCO2 ABG pO2 184 H ABG Total CO2 ABG O2 Saturation 98.7 H Potassium Glucose POC Glucose (mg/dL) 279 H Plasma Lactic Acid Loy Ionized Calcium Hebert Magnesium AST Troponin I Total Protein Albumin 12/21/22 12/21/22 12/21/22 12:00 12:00 12:00 WBC 22.0 H RBC 4.09 L Hgb 11.9 L Hct 36.2 L Neutrophils # 18.3 H Monocytes # 1.2 H APTT 68.3 H ABG pH ABG pCO2 ABG pO2 ABG Total CO2 ABG O2 Saturation Potassium 3.0 L Glucose 268 H POC Glucose (mg/dL) Plasma Lactic Acid Loy Ionized Calcium Hebert 5.6 H Magnesium 8.3 H* AST 86 H Troponin I Total Protein 5.8 L Albumin 3.0 L 12/21/22 12/21/22 12:00 12:06 WBC RBC Hgb Hct Neutrophils # Monocytes # APTT ABG pH 7.34 L ABG pCO2 47 H ABG pO2 223 H ABG Total CO2 27 H ABG O2 Saturation 99.0 H Potassium Glucose POC Glucose (mg/dL) Plasma Lactic Acid Loy 2.6 H* Ionized Calcium Hebert Magnesium AST Troponin I Total Protein Albumin - Diagnostic Findings Chest x-ray: image reviewed (Endotracheal tube was noted to be a little high in the trachea and this was advanced, nasogastric tube was intact and the right central line was in the proper position and no pneumothorax) Assessment and Plan Assessment: Impression: Acute ST elevation myocardial infarction Cardiogenic shock Acute hypoxic respiratory failure secondary to above Recurrent episodes of ventricular tachycardia/ventricular fibrillation requiring multiple defibrillations in the Motivational Speaker and in the ICU Recommendation: Continue present supportive care measures Family to be approached regarding CODE STATUS as the patient seems to be doing quite poorly and continues to have intermittent on multiple episodes of ventricular arrhythmia in spite of amiodarone and in spite of multiple defibrillations Prognosis is extremely poor and guarded Discussed his condition with cardiology at bedside. Bedside echo is being done by cardiology Patient is critically ill, and prognosis is extremely poor Critical care time is over 30 minutes not including the time spent on procedures Time with Patient: Greater than 30
[2022-12-21 14:29] VITALS: PULSE 0; RESP 0
[2022-12-21] MEDS ORDERED: AMIODARONE 450 MG in DEXTROSE 5% IN WATER 250 ML IV SCH ×2 (15:00)
[2022-12-21 17:21] LABS: Chol/HDL Ratio 2.29 Ratio; LDL Cholesterol,Calculated 63.7 mg/dL (0.0-131.0); VLDL Calculation 10.02 mg/dL (5.00-40.00)
--- NOTE | 2022-12-21 18:38 | OP ---
OPERATIVE REPORT DATE OF SERVICE : PROCEDURE PERFORMED: Placement of a right subclavian triple-lumen catheter. PREOPERATIVE DIAGNOSES: 1. Acute cardiac arrest. 2. Acute ST-elevation myocardial infarction. POSTOPERATIVE DIAGNOSIS: 1. Acute cardiac arrest. 2. Acute ST-elevation myocardial infarction. ANESTHESIA USED: 2 mL of 1% lidocaine. DESCRIPTION OF PROCEDURE: The patient was placed in a Trendelenburg position. The area of the right subclavian region and right cervical region were prepared in a sterile fashion, and drapes were applied. The area below the right clavicle was anesthetized locally with lidocaine. Then, using the infraclavicular approach, the right subclavian vein was easily cannulated, and a guidewire was placed. The area around the guidewire was dilated, and a triple-lumen catheter was inserted over the guidewire. Good blood flow. No evidence of any immediate complications. Line was secured using 3-0 silk suture. Chest x-ray showed adequate placement of the line and no complications. MMODL / IJN: [id number] /
--- NOTE | 2022-12-21 18:44 | OP ---
OPERATIVE REPORT DATE OF SERVICE : PROCEDURE PERFORMED: Placement of a left brachial arterial line. PREOPERATIVE DIAGNOSES: 1. Cardiac arrest. 2. Hypotension. 3. Recurrent ventricular fibrillation. ANESTHESIA USED: None deployed. DESCRIPTION OF PROCEDURE: The area of the left brachial region was prepared in a sterile fashion, and drapes were applied. The left brachial artery was palpated, cannulated easily, and a guidewire was placed. A Cook catheter was inserted over the guidewire, and the guidewire was removed. Good blood flow noted. Good waveform noted. No complications. Line was secured using 3-0 silk sutures. MMODL / IJN: [id number] /
[2022-12-21] MEDS ORDERED: ATORVASTATIN 80 MG TAB PO SCH (21:00)
[2022-12-21] MEDS ORDERED: TICAGRELOR 90 MG TAB PO SCH (21:00)
[2022-12-21] MEDS ORDERED: METOPROLOL TARTRATE 25 MG TAB PO SCH (21:00)
--- NOTE | 2022-12-21 21:57 | P.HPIM ---
History of Present Illness H&P Date: 12/21/22 Chief Complaint: Chest pain This is a 77-year-old patient, follows with Dr. Corbett. I saw the patient in the ICU after his cardiac catheterization. Intubated. As per the ER notes: Patient is a 77-year-old male who presents emergency Department complaining of c hest pain. Patient states he does have a history of previously unprovoked blood clots in his left upper extremity and left lower extremity. No longer on blood thinners. Patient also has a history of hypertension. Describes the pain as a pressure sensation with some radiation up towards his neck bilaterally. States it started suddenly when he awoke at 4 AM. Has been relatively constant since and decided to come to the emergency department for further evaluation. Denies any history of cardiac disease. Does have a history of hypertension. Denies any diaphoresis, nausea, vomiting. Denies any abdominal pain or shortness of breath. Did feel little bit lightheaded earlier when he initially awoke. Denies any weakness or numbness. He took 6 baby aspirin at home prior to arrival. Presents for further evaluation at this time. Does not follow up with a finance professor. Patient was then taken to the cardiac laborer aquatic life, catheterization care per Dr. Bernard Tamez. Subsequently patient had a stent of the RCA by Dr. Merritt. Patient is unstable during the procedure and had to be intubated. Patient started on norepinephrine and amiodarone. Patient is given heparin and Brillinta. Sub sequently patient started having episodes of ventricular fibrillation. Was shocked a few times. Brought to the ICU. Patient Going into V. fib. Intermittent A. fib. Patient was then running on IV epinephrine, lidocaine, propofol, amiodarone, Aggrastat and. On the ventilator with FiO2 100 and a PEEP of 5. Presented the room was Dr. Valiente from A team. Also is present finance professor Dr. Lake. Review of systems: Cannot open his patient intubated Past medical history to include: Hypertension, prostate disorder. Social history: Nonsmoker. Alcohol occasional. Physical examination: VITAL SIGNS: 97.8, 60, 18, 148.90, 96% room air upon presentation GENERAL: BMI 28.1, laying in bed, intubated. EYES: Pupils equal. Conjunctiva normal. HEENT: External appearance of nose and ears normal, oral cavity grossly normal, endotracheal tube. NECK: JVD unable to assess; masses not palpable. HEART: First and second heart sounds are normal; no edema. LUNGS: Respiratory rate increased; creased breath sounds. ABDOMEN: Soft, nontender, liver spleen not palpable, no masses palpable. PSYCH: Patient sedatedl. MUSCULOSKELETAL:No Clubbing/cyanosis;muscles-grossly intact NEUROLOGICAL: Cranial nerves grossly intact; no facial asymmetry, power and sensation grossly intact. LYMPHATICS: No lymph nodes palpable in the axilla and neck INVESTIGATIONS, reviewed in the clinical context: White count 8.5 hemoglobin 14 platelets 182 potassium 4 creatinine 0.86 Troponin I 0.037 LDL 63 EKG tracing personally reviewed by me-ST segment depression in lead 1 aVL V2-V6 Chest x-ray film personally reviewed by me-lung keene clear Assessment and plan: -Acute non-Q wave MT. -CAD with stent placement to RCA by Dr. Merritt. -Recurrent episodes of ventricular fibrillation. Patient was shocked multiple times. Received epinephrine, lidocaine, amiodarone -Acute hypoxic respiratory failure, on ventilator assist Patient intubated on the ventilator. -Type II lactic acidosis from cardiogenic shock -Cardiac shock Patient on IV fluid support. Epinephrine. -Full code Risk Assessor Dr. Lake is present in the room. Patient being managed critically by him. Also pulmonary's of the case. Prognosis guarded. Past Medical History Past Medical History: Hypertension, Prostate Disorder History of Any Multi-Drug Resistant Organisms: None Reported Past Surgical History: Breast Surgery, Hernia Repair Additional Past Surgical History / Comment(s): CYST REMOVED FROM LT BREAST- BENIGN. COLONOSCOPY. CATARACT REMOVED LT EYE Past Anesthesia/Blood Transfusion Reactions: No Reported Reaction Past Psychological History: No Psychological Hx Reported Smoking Status: Never smoker Past Alcohol Use History: Occasional Past Drug Use History: None Reported Medications and Allergies Home Medications Medication Instructions Recorded Confirmed Type Atorvastatin [Lipitor] 10 mg PO HS 12/21/22 12/21/22 History Losartan Potassium 100 mg PO HS 12/21/22 12/21/22 History Multivitamins, Thera [Multivitamin 1 tab PO DAILY 12/21/22 12/21/22 History (formulary)] Allergies Allergy/AdvReac Type Severity Reaction Status Date / Time No Known Allergies Allergy Verified 12/21/22 07:22 Physical Exam Vitals: Vital Signs Temp Pulse Resp BP Pulse Ox FiO2 12/21/22 08:52 100 12/21/22 08:51 100 12/21/22 07:18 60 18 148/90 96 12/21/22 06:14 97.8 F 58 L 16 189/94 99 Intake and Output 12/20/22 12/21/22 12/21/22 22:59 06:59 14:59 Intake Total 206 Balance 206 Intake: IV 206 Other: Weight 86.183 kg Results CBC & Chem 7: 12/21/22 12:00 12/21/22 12:00 Labs: Abnormal Lab Results - Last 24 Hours (Table) 12/21/22 12/21/22 Range/Units 06:31 06:31 Glucose 115 H (74-99) mg/dL Troponin I 0.037 H* (0.000-0.034) ng/mL
--- NOTE | 2022-12-21 21:59 | P.DS ---
Providers Date of admission: 12/21/22 07:35 Expected date of discharge: 12/21/22 (Patient ) Attending physician: Imtiaz Zuluaga Consults: 12/21/22 07:24 Consult Physician Stat Consulting Provider: Fab Melendez Consult Reason/Comments: stemi Do you want consulting provider notified?: Already Contacted 12/21/22 10:25 Consult Physician Routine Consulting Provider: [facility] Consult Reason/Comments: Post Interventional Patient Do you want consulting provider notified?: Already Contacted Primary care physician: [facility] Course: Chief Complaint: Chest pain This is a 77-year-old patient, follows with Dr. Corbett. I saw the patient in the ICU after his cardiac catheterization. Intubated. As per the ER notes: Patient is a 77-year-old male who presents emergency Department complaining of chest pain. Patient states he does have a history of previously unprovoked blood clots in his left upper extremity and left lower extremity. No longer on blood thinners. Patient also has a history of hypertension. Describes the pain as a pressure sensation with some radiation up towards his neck bilaterally. States it started suddenly when he awoke at 4 AM. Has been relatively constant since and decided to come to the emergency department for further evaluation. Denies any history of cardiac disease. Does have a history of hypertension. Denies any diaphoresis, nausea, vomiting. Denies any abdominal pain or shortness of breath. Did feel little bit lightheaded earlier when he initially awoke. Denies any weakness or numbness. He took 6 baby aspirin at home prior to arrival. Presents for further evaluation at this time. Does not follow up with a client care manager. Patient was then taken to the cardiac label remover, catheterization care per Dr. Bernard Tamez. Subsequently patient had a stent of the RCA by Dr. Merritt. Patient is unstable during the procedure and had to be intubated. Patient started on norepinephrine and amiodarone. Patient is given heparin and Brillinta. Subsequently patient started having episodes of ventricular fibrillation. Was shocked a few times. Brought to the ICU. Patient Going into V. fib. Intermittent A. fib. Patient was then running on IV epinephrine, lidocaine, propofol, amiodarone, Aggrastat and. On the ventilator with FiO2 100 and a PEEP of 5. Presented the room was Dr. Valiente from A team. Also is present client care manager Dr. Lake. In spite of all heroic measures, patient finally succumbed and . Review of systems: Cannot open his patient intubated Past medical history to include: Hypertension, prostate disorder. Social history: Nonsmoker. Alcohol occasional. INVESTIGATIONS, reviewed in the clinical context: White count 8.5 hemoglobin 14 platelets 182 potassium 4 creatinine 0.86 Troponin I 0.037 LDL 63 EKG tracing personally reviewed by me-ST segment depression in lead 1 aVL V2-V6 Chest x-ray film personally reviewed by me-lung keene clear Cause of : Acute myocardial infarction. Assessment and plan: -Acute non-Q wave RI. -CAD with stent placement to RCA by Dr. Merritt. -Recurrent episodes of ventricular fibrillation. Patient was shocked multiple times. Received epinephrine, lidocaine, amiodarone -Acute hypoxic respiratory failure, on ventilator assist Patient intubated on the ventilator. -Type II lactic acidosis from cardiogenic shock -Cardiac shock Patient on IV fluid support. Epinephrine. Disposition: Patient Plan - Discharge Summary New Discharge Prescriptions: No Action Atorvastatin [Lipitor] 10 mg PO HS Multivitamins, Thera [Multivitamin (formulary)] 1 tab PO DAILY Losartan Potassium 100 mg PO HS Discharge Medication List Atorvastatin [Lipitor] 10 mg PO HS 12/21/22 [History] Losartan Potassium 100 mg PO HS 12/21/22 [History] Multivitamins, Thera [Multivitamin (formulary)] 1 tab PO DAILY 12/21/22 [History] Follow up Appointment(s)/Referral(s): Modesto Corbett DO [Primary Care Provider] - 1-2 days Discharge Disposition: - Preliminary Cause of Preliminary Cause of : Acute myocardial infarction
[2022-12-22] MEDS ORDERED: ASPIRIN 81 MG PO SCH (09:00)
[2022-12-22] MEDS ORDERED: PANTOPRAZOLE 40 MG/10 ML VIAL IVP SCH (09:00)
--- NOTE | 2022-12-22 10:28 | CA ---
Transthoracic Echo Report Name: Mikie Lane Age: 77 Gender: M : 1945 Exam Date: 12/21/2022 11:42 Exam Location: [place] [facility] Ht (in): Wt (lb): Ordering Physician: Kristofer Merritt MD Attending/Referring Phys: Certified Prosthetist Vice President Alice Willson RDCS Procedure CPT: Indications: [place] Cardiac Hx: Technical Quality: Fair Contrast 1: Total Dose (mL): Contrast 2: Total Dose (mL): MEASUREMENTS (Male / Female) Normal Values FINDINGS Left Ventricle STAT echo s/p Code blue. Limited view study. Reduced global left ventricular systolic function. Left ventricular ejection fraction is estimated at 45-50%. There is inferolateral mild hypokinesia Right Ventricle Right Atrium Left Atrium Mitral Valve Aortic Valve Tricuspid Valve Pulmonic Valve Pericardium No pericardial effusion. Aorta CONCLUSIONS Normal LV size ejection fraction is about 45% with inferolateral hypokinesia Previewed by: Dr. Alice Harrell MD (Electronically Signed) Final Date: 22 December 2022 10:27
== END 2022-12-21 14:19 | disposition expired | DRG 246 ==
LOC: EC 06:12 → 2SICU 07:35
PROVIDERS: ADMIT Hospitalist; ATTEND Hospitalist
PROC: 0BH17EZ Insertion of Endotracheal Airway into Trachea, Via Natural or Artificial Opening (ICD-10-PCS; 2022-12-21)
PROC: 5A12012 Performance of Cardiac Output, Single, Manual (ICD-10-PCS; 2022-12-21)
PROC: 4A133B1 Monitoring of Arterial Pressure, Peripheral, Percutaneous Approach (ICD-10-PCS; 2022-12-21)
PROC: 4A133J1 Monitoring of Arterial Pulse, Peripheral, Percutaneous Approach (ICD-10-PCS; 2022-12-21)
PROC: 03HY32Z Insertion of Monitoring Device into Upper Artery, Percutaneous Approach (ICD-10-PCS; 2022-12-21)
PROC: 02HV33Z Insertion of Infusion Device into Superior Vena Cava, Percutaneous Approach (ICD-10-PCS; 2022-12-21)
PROC: B5181ZA Fluoroscopy of Superior Vena Cava using Low Osmolar Contrast, Guidance (ICD-10-PCS; 2022-12-21)
PROC: B548ZZA Ultrasonography of Superior Vena Cava, Guidance (ICD-10-PCS; 2022-12-21)
PROC: 4A023N7 Measurement of Cardiac Sampling and Pressure, Left Heart, Percutaneous Approach (ICD-10-PCS; 2022-12-21)
PROC: B2111ZZ Fluoroscopy of Multiple Coronary Arteries using Low Osmolar Contrast (ICD-10-PCS; 2022-12-21)
PROC: B240ZZ3 Ultrasonography of Single Coronary Artery, Intravascular (ICD-10-PCS; 2022-12-21)
PROC: 5A1935Z Respiratory Ventilation, Less than 24 Consecutive Hours (ICD-10-PCS; principal; 2022-12-21 07:22)
PROC: 027035Z Dilation of Coronary Artery, One Artery with Two Drug-eluting Intraluminal Devices, Percutaneous Approach (ICD-10-PCS; 2022-12-21 07:22)
DX: I21.19 ST elevation (STEMI) myocardial infarction involving other coronary artery of inferior wall (principal); J96.01 Acute respiratory failure with hypoxia; E87.20 Acidosis, unspecified; I47.20 Ventricular tachycardia, unspecified; I10 Essential (primary) hypertension; R57.0 Cardiogenic shock; Z51.5 Encounter for palliative care; Z66 Do not resuscitate; I25.110 Atherosclerotic heart disease of native coronary artery with unstable angina pectoris; I25.5 Ischemic cardiomyopathy; E78.00 Pure hypercholesterolemia, unspecified; I48.91 Unspecified atrial fibrillation; I49.01 Ventricular fibrillation; Z79.899 Other long term (current) drug therapy; Z95.5 Presence of coronary angioplasty implant and graft; Z87.19 Personal history of other diseases of the digestive system; Z98.42 Cataract extraction status, left eye
CPT/HCPCS: 36415; 71045; 71046; 80053; 80061; 82330; 82805; 83605; 83735; 84100; 84484; 85025; 85049; 85379; 85610; 85730; 93005; 93308; 94002; 96374; 99285; 99291